=== PATIENT | female | born 1960 ===

== ENCOUNTER 2018-03-28 10:56 | Emergency (ER) | payer OTHER ==
[~2018-03-28] VITALS: Ht 165.1 cm; Wt 72.6 kg
[2018-03-28] MEDS ORDERED: COLCHICINE0.6 M1 PO (16:55)
[2018-03-28] MEDS ORDERED: MEDROLPACK PO (16:55)
[2018-03-28] MEDS ORDERED: KETO10TA2 PO (16:55)
[2018-03-28] MEDS ORDERED: INDOMETHACIN50 MG PO (16:55)
== END 2018-03-28 17:21 | disposition home or self-care (01) ==
LOC: ER 10:56
DX: M79.674 Pain in right toe(s) (principal); M10.471 Other secondary gout, right ankle and foot